=== PATIENT | female | born 1945 | race Two or more races ===

== ENCOUNTER 2019-06-15 06:32 | Day surgery (SDC) | payer MEDICARE, OTHER ==
[2019-06-15] MEDS ORDERED: PROPOFOL 200 MG/20 ML BOTTLE IV ONE (06:33)
[2019-06-15] MEDS ORDERED: CEFAZOLIN 1 G VIAL IM ONE (06:33)
[2019-06-15] MEDS ORDERED: DEXAMETHASONE SOD PHOSPHATE 4 MG INJ IV ONE (06:33)
[2019-06-15] MEDS ORDERED: LIDOCAINE-MPF 2% 5 ML VIAL IJ ONE (06:33)
[2019-06-15] MEDS ORDERED: KETOROLAC TROMETHAMINE 30 MG INJ IM ONE (06:33)
[2019-06-15] MEDS ORDERED: SEVOFLURANE 250 ML BOTTLE IH ONE (06:33)
[2019-06-15] MEDS ORDERED: IV NORMAL SALINE 1000 ML BAG IV ONE (06:33)
[2019-06-15] MEDS ORDERED: ONDANSETRON 4 MG/2 ML VIAL IV ONE (06:33)
[2019-06-15] MEDS ORDERED: BUPIVACAINE/EPI PF 0.25% 30 ML VIAL ONE (07:13)
[2019-06-15] MEDS ORDERED: MORPHINE SULFATE PF 10 MG/10 ML AMPUL IV ONE (07:13)
[2019-06-15] MEDS ORDERED: FENTANYL CITRATE 100 MCG/2 ML AMPUL ONE (08:00)
== END 2019-06-15 11:15 | disposition home or self-care (01) ==
LOC: DS 06:32
PROVIDERS: ATTEND Orthopaedic Surgery
DX: S83.272A Complex tear of lateral meniscus, current injury, left knee, initial encounter (principal); M94.262 Chondromalacia, left knee; M65.88 Other synovitis and tenosynovitis, other site; I10 Essential (primary) hypertension; E78.5 Hyperlipidemia, unspecified; E03.9 Hypothyroidism, unspecified; F41.9 Anxiety disorder, unspecified; F32.9 Major depressive disorder, single episode, unspecified; Z79.899 Other long term (current) drug therapy; Z88.2 Allergy status to sulfonamides; Z88.8 Allergy status to other drugs, medicaments and biological substances; Z98.890 Other specified postprocedural states; X58.XXXA Exposure to other specified factors, initial encounter; Y93.89 Activity, other specified; Y92.89 Other specified places as the place of occurrence of the external cause; Y99.8 Other external cause status
CPT/HCPCS: 29876; 29881; C1713; J0690; J1100; J1885; J2274; J2405; J3010; J3490 ×2; J7120; A4663; J7030